=== PATIENT | female | born 1990 | race Caucasian/White ===

== ENCOUNTER 2016-08-08 22:28 | Emergency (ER) | payer BC ==
[~2016-08-08] VITALS: Ht 162.6 cm; Wt 50.7 kg
[2016-08-08 23:50] LABS: INTERNAL CONTROL VALID? YES
[2016-08-08 23:53] LABS: ADD MIUA? NO; BILIRUBIN NEGATIVE; BLOOD NEGATIVE; COLOR STRAW ((YELLOW)); GLUCOSE (STRIP) NEGATIVE; KETONES NEGATIVE; LEUKOCYTES NEGATIVE; NITRITE NEGATIVE; PROTEIN (STRIP) NEGATIVE; SPECIFIC GRAVITY 1.011 (1.000-1.030); UROBILINOGEN 0.2 MG/DL (0.2-1.0)
[2016-08-09] MEDS ORDERED: PERCOCET 5/31 TABLET PO (01:26)
[2016-08-09 01:42] VITALS: BP 101/62
== END 2016-08-09 01:47 | disposition home or self-care (01) ==
LOC: RME 22:28 → EME 22:28 → RME 08-09 01:47
PROVIDERS: Nurse Practitioner Family
DX: N83.202 Unspecified ovarian cyst, left side (principal); Z97.5 Presence of (intrauterine) contraceptive device
CPT/HCPCS: 76856; 81003; 84703; 99281; 99285